=== PATIENT | male | born 1990 | race Caucasian/White ===

== ENCOUNTER 2016-08-26 18:50 | Emergency (ER) | payer OTHER | END 2016-08-26 22:15 | disposition home or self-care (01) | LOC: ER 18:50 | DX: K82.8 Other specified diseases of gallbladder (principal); F17.210 Nicotine dependence, cigarettes, uncomplicated | CPT/HCPCS: 36415; 96361; 96374; 96375; J2550 ==

== ENCOUNTER 2016-08-29 17:18 | Observation (INO) | payer OTHER ==
[~2016-08-29] VITALS: Ht 172.7 cm; Wt 75.3 kg
--- NOTE | 2016-08-30 09:50 | NUR ---
0730 RECEIVED REPORT ON PATIENT FROM DATA STORAGE SPECIALIST RN, PATIENT IS ALREADY OFF THE FLOOR AND IN OR AT THIS TIME.
--- NOTE | 2016-08-30 10:44 | NUR ---
1035 PATIENT BACK TO FLOOR FROM OR. PATIENT EASILY AROUSED. VITALS OBTAINED AND ARE STABLE AT B/P 115/72, RESP. 18, PULSE 76, TEMP., 97.8, ROOM AIR O2 SAT. 92%. FAMIYL AT BEDSIDE. PATIENT DENIES PAIN AT THIS TIME ABDOMEN LAP SHEYLA SITES X4 WITH NO DRAINAGE NOTED.
== END 2016-08-30 14:48 | disposition home or self-care (01) ==
LOC: MED 17:18
PROVIDERS: ADMIT Surgery
DX: K80.12 Calculus of gallbladder with acute and chronic cholecystitis without obstruction (principal); K21.9 Gastro-esophageal reflux disease without esophagitis; F17.210 Nicotine dependence, cigarettes, uncomplicated
CPT/HCPCS: 96361; 96365; 96366; 96375; 96376; G0378; J1885; J2704; Q9967